=== PATIENT | female | born 2000 | race Caucasian/White ===

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

== ENCOUNTER 2025-01-25 12:39 | Emergency (ER) | payer BC, SELFPAY ==
[2025-01-25] VITALS (7 sets, daily range): BP systolic 104–137; BP diastolic 55–87; PULSE 68–89; RESP 13–20; TEMP 36.6–37.1; O2SAT 97–100; BMI 29.9
--- NOTE | 2025-01-25 12:47 | ECG_ITS ---
APPROVED REPORT Exam: Resting ECG HR:85 bpm ECG Measurements Heart Rate 85 AXES ND 145 P 28 QRSd 76 QRS 70 QT 340 T 2 QTc 383 Conclusion SINUS RHYTHM Normal intervals Normal [place] No STEMI Electronically signed by : Randy Rapp, 01/25/2025 16:45:32
--- OUTSIDE RECORDS SUMMARY | 2025-01-25 12:47 | XMS_ITS | Data Portability ---
Author Organization [facility] Address [address] [place] [address] Assessment No assessment recorded. Plan of Treatment Reminders Order Date Submit Date Provider Last Modified By Organization Details Last Modified Time Details Appointments None recorded. Lab cobalamin and folate panel, serum 2024 025 [facility], [address], [address], [place], [address], 5 08:11:15 iron + total iron-bindin g capacity (TIBC), serum 2024 025 [facility], [address], [place], [place], [address], 5 08:11:15 CBC w/ auto diff 2024 025 [facility], [address], [place] [address], [place], [address], 5 08:11:14 CMP, serum or plasma 2024 025 [facility], [address], [place] [address], [place], [address], 5 08:11:15 vitamin D, 25-hydroxy, total, serum 2024 025 [facility], [address], [place] [address], [place], [address], 5 08:11:16 TSH + free T4, serum 2024 025 [facility], [address], [address], [place], [address], 5 08:11:14 HbA1c (hemoglobin A1c), blood 2024 025 [facility], [address], [place] [address], [place], [address], 5 08:11:16 insulin, serum 2024 025 [facility], [address], [place] [address], [place], [address], 5 08:11:17 beta-HCG, qualitative , serum or plasma 2024 025 [facility], [address], [place] [address], [place], [address], 5 08:11:16 rapid strep group A, throat 2023 024 [facility], [address] [facility], [place], [address], 4 11:32:22 Referral None recorded. Procedures None recorded. Surgeries None recorded. Imaging None recorded. Medication Orders neomycin-po lymyxin-hyd rocort 3.5 mg-10,000 unit/mL-1 % ear drops,susp 2023 025 [facility], [address] [place], [place] [address], [id number], 5 08:48:06 Zithromax Z-Karthikeyan 250 mg tablet 2023 024 [facility], [address] [place], [place] [address], [id number], 4 15:39:56 neomycin-po lymyxin-hyd rocort 3.5 mg-10,000 unit/mL-1 % ear drops,susp [facility], [address] [place] [address] Isabelle [place], [id number], 17:39:28 amoxicillin 500 mg capsule 2021 [facility], [address] [place] [address] Isabelle Sun[place], [id number], 17:39:23 Patient TargetsNo targets recorded. Patient Instructions Encounter Date Encounter Id Patient Instructions Last Modified By Organization Details Last Modified Time 01/08/2024 [id number] sore throat in children: care instructions efryman Not available 01/08/2024 10:59:25 Reason for Referral None Reported. Results Created Date Observation Date Name Description Value Unit Range Abnormal Flag Note LastModifiedBy Organization Detail LastModifiedTime 01/08/2001/08/2024 rapid strep group A, throa t Strep negati ve Not Available [address], [address], 01/08/2024 10:41:03 01/08/20 24 01/08/2024 rapid strep group A, throa t Culture No Not Available [address], [address], 01/08/2024 10:41:03 01/22/20 25 01/22/2025 TSH+F REE T4 TSH 1.520 uIU/m L 0.450- 4.500 normal Not Available [facility] ([facility]) [address] [place], [address], 01/22/2025 08:11:14 01/22/2001/22/2025 TSH+F REE T4 T4,free(dire ct) 0.89 NG/dL 0.82-1 .77 normal Not Available [facility] ([facility]) [address] [place], [address], 01/22/2025 08:11:14 01/22/20 25 01/22/2025 CBC WITH DIFFE RENTI AL/PL ATELE T WBC 6.7 x10e3 /uL 3.4-10 .8 normal Not Available [facility] ([facility]) [address] [facility], [place], [address], 01/22/2025 08:11:14 01/22/2001/22/2025 CBC WITH DIFFE RENTI AL/PL ATELE T RBC 4.76 x10e6 /uL 3.77-5 .28 normal Not Available [facility] ([facility]) [address] [place], [address], 01/22/2025 08:11:14 01/22/2001/22/2025 CBC WITH DIFFE RENTI AL/PL ATELE T hemoglobin 12.8 g/dL 11.1-1 5.9 normal Not Available [facility] ([facility]) [address] [place], [address], 01/22/2025 08:11:14 01/22/2001/22/2025 CBC WITH DIFFE RENTI AL/PL ATELE T hematocrit 41.2 % 34.0-4 6.6 normal Not Available [facility] ([facility]) [address] [place], [address], 01/22/2025 08:11:14 01/22/2001/22/2025 CBC WITH DIFFE RENTI AL/PL ATELE T MCV 87 fL 79-97 normal Not Available [facility] ([facility]) [address] [place], [address], 01/22/2025 08:11:14 01/22/20 25 01/22/2025 CBC WITH DIFFE RENTI AL/PL ATELE T MCH 26.9 pg 26.6-3 3.0 normal Not Available [facility] ([facility]) [address] [facility], [place], [address], 01/22/2025 08:11:14 01/22/20 25 01/22/2025 CBC WITH DIFFE RENTI AL/PL ATELE T MCHC 31.1 g/dL 31.5-3 5.7 below low normal Not Available [facility] ([facility]) [address] [facility], [place], [address], 01/22/2025 08:11:14 01/22/20 25 01/22/2025 CBC WITH DIFFE RENTI AL/PL ATELE T RDW 15.2 % 11.7-1 5.4 Not Available [facility] ([facility]) [address] [facility], [place], [address], 01/22/2025 08:11:14 01/22/20 25 01/22/2025 CBC WITH DIFFE RENTI AL/PL ATELE T platelets 391 x10e3 /uL 150-45 0 normal Not Available [facility] ([facility]) [address] [facility], [place], [address], 01/22/2025 08:11:14 01/22/2001/22/2025 CBC WITH DIFFE RENTI AL/PL ATELE T neutrophils 56 % not estab. normal Not Available [facility] ([facility]) [address] [facility], [place], [address], 01/22/2025 08:11:14 01/22/2001/22/2025 CBC WITH DIFFE RENTI AL/PL ATELE T lymphs 34 % not estab. normal Not Available [facility] ([facility]) [address] [facility], [place], [address], 01/22/2025 08:11:14 01/22/20 25 01/22/2025 CBC WITH DIFFE RENTI AL/PL ATELE T monocytes 7 % not estab. normal Not Available [facility] ([facility]) [address] [place], [address], 01/22/2025 08:11:14 01/22/20 25 01/22/2025 CBC WITH DIFFE RENTI AL/PL ATELE T eos 2 % not estab. normal Not Available [facility] ([facility]) [address] [place], [address], 01/22/2025 08:11:14 01/22/20 25 01/22/2025 CBC WITH DIFFE RENTI AL/PL ATELE T basos 1 % not estab. normal Not Available [facility] ([facility]) [address] [place], [address], 01/22/2025 08:11:14 01/22/20 25 01/22/2025 CBC WITH DIFFE RENTI AL/PL ATELE T immature cells AEROSOL SUPERVISOR Not Available [facility] ([facility]) [address] [place], [address], 01/22/2025 08:11:14 01/22/20 25 01/22/2025 CBC WITH DIFFE RENTI AL/PL ATELE T neutrophils (absolute) 3.8 x10e3 /uL 1.4-7. 0 normal Not Available [facility] ([facility]) [address] [place], [address], 01/22/2025 08:11:14 01/22/2001/22/2025 CBC WITH DIFFE RENTI AL/PL ATELE T lymphs (absolute) 2.2 x10e3 /uL 0.7-3. 1 normal Not Available [facility] ([facility]) [address] [place], [address], 01/22/2025 08:11:14 01/22/20 25 01/22/2025 CBC WITH DIFFE RENTI AL/PL ATELE T monocytes(ab solute) 0.5 x10e3 /uL 0.1-0. 9 normal Not Available [facility] ([facility]) [address] [place], [address], 01/22/2025 08:11:14 01/22/20 25 01/22/2025 CBC WITH DIFFE RENTI AL/PL ATELE T eos (absolute) 0.2 x10e3 /uL 0.0-0. 4 normal Not Available [facility] ([facility]) [address] [facility], [place], [address], 01/22/2025 08:11:14 01/22/20 25 01/22/2025 CBC WITH DIFFE RENTI AL/PL ATELE T baso (absolute) 0.1 x10e3 /uL 0.0-0. 2 normal Not Available [facility] ([facility]) [address] [facility], [place], [address], 01/22/2025 08:11:14 01/22/20 25 01/22/2025 CBC WITH DIFFE RENTI AL/PL ATELE T immature granulocytes 0 % not estab. Not Available [facility] ([facility]) [address] [facility], [place], [address], 01/22/2025 08:11:14 01/22/2001/22/2025 CBC WITH DIFFE RENTI AL/PL ATELE T immature grans (abs) 0.0 x10e3 /uL 0.0-0. 1 Not Available [facility] ([facility]) [address] [facility], [place], [address], 01/22/2025 08:11:14 01/22/2001/22/2025 CBC WITH DIFFE RENTI AL/PL ATELE T NRBC AEROSOL SUPERVISOR Not Available [facility] ([facility]) [address] [facility], [place], [address], 01/22/2025 08:11:14 01/22/2001/22/2025 CBC WITH DIFFE RENTI AL/PL ATELE T hematology comments: AEROSOL SUPERVISOR Not Available [facility] ([facility]) [address] [facility], [place], [address], 01/22/2025 08:11:14 01/22/20 25 01/22/2025 COMP. METAB OLIC PANEL (14) glucose 86 mg/dL 70-99 normal Not Available [facility] ([facility]) [address] [facility] [place], [address], 01/22/2025 08:11:15 01/22/20 25 01/22/2025 COMP. METAB OLIC PANEL (14) BUN 9 mg/dL 6-20 normal Not Available [facility] ([facility]) [address] [facility] [place], [address], 01/22/2025 08:11:15 01/22/20 25 01/22/2025 COMP. METAB OLIC PANEL (14) creatinine 0.77 mg/dL 0.57-1 .00 normal Not Available [facility] ([facility]) [address] [facility] [place], [address], 01/22/2025 08:11:15 01/22/20 25 01/22/2025 COMP. METAB OLIC PANEL (14) eGFR 112 mL/mi n/1.7 3 >59 normal Not Available [facility] ([facility]) [address] [place], [address], 01/22/2025 08:11:15 01/22/20 25 01/22/2025 COMP. METAB OLIC PANEL (14) BUN/creatini ne ratio 12 9-23 normal Not Available [facility] ([facility]) [address] [place], [address], 01/22/2025 08:11:15 01/22/20 25 01/22/2025 COMP. METAB OLIC PANEL (14) sodium 139 mmol/ L 134-14 4 normal Not Available [facility] ([facility]) [address] [place], [address], 01/22/2025 08:11:15 01/22/20 25 01/22/2025 COMP. METAB OLIC PANEL (14) potassium 4.5 mmol/ L 3.5-5. 2 normal Not Available [facility] ([facility]) [address] [facility] [place], [address], 01/22/2025 08:11:15 01/22/20 25 01/22/2025 COMP. METAB OLIC PANEL (14) chloride 100 mmol/ L 96-106 normal Not Available [facility] ([facility]) [address] [facility] [place], [address], 01/22/2025 08:11:15 01/22/20 25 01/22/2025 COMP. METAB OLIC PANEL (14) carbon dioxide, total 17 mmol/ L 20-29 below low normal Not Available [facility] ([facility]) [address] [facility] [place], [address], 01/22/2025 08:11:15 01/22/20 25 01/22/2025 COMP. METAB OLIC PANEL (14) calcium 9.9 mg/dL 8.7-10 .2 normal Not Available [facility] ([facility]) [address] [place], [address], 01/22/2025 08:11:15 01/22/20 25 01/22/2025 COMP. METAB OLIC PANEL (14) protein, total 7.2 g/dL 6.0-8. 5 normal Not Available [facility] ([facility]) [address] [place], [address], 01/22/2025 08:11:15 01/22/20 25 01/22/2025 COMP. METAB OLIC PANEL (14) albumin 4.8 g/dL 4.0-5. 0 normal Not Available [facility] ([facility]) [address] [place], [address], 01/22/2025 08:11:15 01/22/20 25 01/22/2025 COMP. METAB OLIC PANEL (14) globulin, total 2.4 g/dL 1.5-4. 5 Not Available [facility] ([facility]) [address] [facility] [place], [address], 01/22/2025 08:11:15 01/22/20 25 01/22/2025 COMP. METAB OLIC PANEL (14) bilirubin, total <0.2 mg/dL 0.0-1. 2 Not Available [facility] ([facility]) [address] [facility] [place], [address], 01/22/2025 08:11:15 01/22/20 25 01/22/2025 COMP. METAB OLIC PANEL (14) alkaline phosphatase 71 IU/L 44-121 normal Not Available [facility] ([facility]) [address] [facility] [place], [address], 01/22/2025 08:11:15 01/22/20 25 01/22/2025 COMP. METAB OLIC PANEL (14) AST (SGOT) 27 IU/L 0-40 normal Not Available [facility] ([facility]) [address] [facility] [place], [address], 01/22/2025 08:11:15 01/22/20 25 01/22/2025 COMP. METAB OLIC PANEL (14) ALT (SGPT) 24 IU/L 0-32 normal Not Available [facility] ([facility]) [address] [place], [address], 01/22/2025 08:11:15 01/22/20 25 01/22/2025 IRON AND TIBC iron bind.cap.(TI BC) 503 ug/dL 250-45 0 above high normal Not Available [facility] ([facility]) [address] [facility] [place], [address], 01/22/2025 08:11:15 01/22/20 25 01/22/2025 IRON AND TIBC UIBC 461 ug/dL 131-42 5 above high normal Not Available [facility] ([facility]) [address] [facility], [place], [address], 01/22/2025 08:11:15 01/22/20 25 01/22/2025 IRON AND TIBC iron 42 ug/dL 27-159 normal Not Available [facility] ([facility]) [address] [facility], [place], [address], 01/22/2025 08:11:15 01/22/20 25 01/22/2025 IRON AND TIBC iron saturation 8 % 15-55 alert low Not Available [facility] ([facility]) [address] [facility], [place], [address], 01/22/2025 08:11:15 01/22/20 25 01/22/2025 VITAM IN B12 AND FOLAT E vitamin B12 466 pg/mL 232-12 45 normal Not Available [facility] ([facility]) [address] [facility], [place], [address], 01/22/2025 08:11:15 01/22/20 25 01/22/2025 VITAM IN B12 AND FOLAT E folate (folic acid), serum 14.1 NG/mL >3.0 normal A serum folat e leonila ntrat ion of less than 3.1 ng/mL is consi dered to repre sent clini susana defic iency . Not Available [facility] ([facility]) [address] [facility], [place], [address], 01/22/2025 08:11:15 01/22/2001/22/2025 HEMOG LOBIN A1C hemoglobin A1C 5.6 % 4.8-5. 6 normal Predi abete s: 5.7 - 6.4 Diabe fuentes: >6.4 Glyce noah contr ol for adult s with diabe fuentes: <7.0 Not Available [facility] ([facility]) [address] [place], [address], 01/22/2025 08:11:16 01/22/20 25 01/22/2025 VITAM IN D, 25-HY DROXY vitamin D, 25-hydroxy 25.7 NG/mL 30.0-1 00.0 below low normal Vitam in D defic iency has been defin ed by the Insti tute of Medic ine and an Endoc rine Socie ty pract ice guide line as a level of serum 25-OH vitam in D less than 20 ng/mL (1,2) . The Endoc rine Socie ty went on to furth er defin e vitam in D insuf ficie ncy as a level betwe en 21 and 29 ng/mL (2). 1. IOM (Inst itute of Medic ine). 2010. Radah ry refer georgettee arsen es for calci um and D. Janes tovar [place]: The [facility] Press . 2. Jairo rodrigues MF, Peggy arita [place], Smiley off-F errar i PATEL, et al. Evalu ation , treat ment, and preve ntion of vitam in D defic iency : an Endoc rine Socie ty clini susana pract ice guide line. JCEM. 2010; 96(7) :1911 -30. Not Available [facility] ([facility]) [address] [place], [address], 01/22/2025 08:11:16 01/22/20 25 01/22/2025 HCG QL W/REF PERI TO HCG QN HCG,beta subunit,qual Negati ve mIU/m L negati ve <6 Not Available [facility] ([facility]) [address] [place], [address], 01/22/2025 08:11:16 01/22/20 25 01/22/2025 INSUL IN insulin 17.2 uIU/m L 2.6-24 .9 normal Not Available [facility] ([facility]) [address] [place], [address], 01/22/2025 08:11:17 Result Notes None recorded. Problems No Known Problems Medical Equipment None Reported. Allergies No known drug allergies Medications Name Sig Start Date Stop Date Status Note LastModified by Organization Details LastModified Time amoxicillin 500 mg capsule Take 1 capsule twice a day by oral route as directed for 10 days. 01/21 completed Not Available Not Available Not Available neomycin-po lymyxin-hyd rocort 3.5 mg/mL-10,00 0 unit/mL-1 % ear solution 01/21 completed Not Available Not Available Not Available azithromyci n 250 mg tablet TAKE 2 TABLETS (500 MG) BY ORAL ROUTE ONCE DAILY FOR 1 DAY THEN 1 TABLET (250 MG) BY ORAL ROUTE ONCE DAILY FOR 4 DAYS 05/16 completed Not Available Not Available Not Available ofloxacin 0.3 % ear drops 06/30 completed Not Available Not Available Not Available amoxicillin 875 mg tablet 06/30 completed Not Available Not Available Not Available methylpredn isolone 4 mg tablets in a dose pack 06/30 completed Not Available Not Available Not Available neomycin-po lymyxin-hyd rocort 3.5 mg-10,000 unit/mL-1 % ear drops,susp INSTILL 4 DROPS INTO AFFECTED EAR(S) BY OTIC ROUTE 3 TIMES PER DAY 01/21 completed Not Available Not Available Not Available cholecalcif chiquita (vitamin D3) 1,250 mcg (50,000 unit) capsule Take 1 capsule every week by oral route. 2024 active Not Available Not Available Not Avai lable Vitals Date Recorded Body weight Body temperature Heart rate Oxygen saturation Oxygen saturation in Arterial blood by Pulse oximetry Respiratory rate Systolic And Diastolic Provider Name and Address Organization Details Last Updated DateTime 4 29217.0 3 g 97.6 [degF] 104 /min 98 % 98 % 18 /min 130/82 mm[Hg] Shelbi CASTILLO - [facility] 4 10:46:18 Date Recorded Body weight Body temperature Heart rate Oxygen saturation Oxygen saturation in Arterial blood by Pulse oximetry Respiratory rate Systolic And Diastolic Provider Name and Address Organization Details Last Updated DateTime 4 26308.4 g 98.1 [degF] 122 /min 99 % 99 % 18 /min 132/78 mm[Hg] Shelbi CASTILLO - [facility] 4 15:39:19 Date Recorded Body weight Body temperature Heart rate Oxygen saturation Oxygen saturation in Arterial blood by Pulse oximetry Respiratory rate Systolic And Diastolic Provider Name and Address Organization Details Last Updated DateTime 2 29367.4 2 g 97.6 [degF] 116 /min 98 % 98 % 18 /min 140/82 mm[Hg] Shelbi Borges [place] - [facility] 2 14:42:16 Social History Question Answer Notes LastModified by Organizat ion Details LastModified Time Tobacco Smoking Status Never Smoker Shelbi Borges null, [place] - [facility] 06/30/2022 14:43:59 Do You Have An Advance Directive? No Information n ot available 06/30/2022 Are You Blind Or Do You Have Difficulty Seeing? No Information n ot available 06/30/2022 What Is Your Level Of Caffeine Consumption? Occasional Information not available 06/30/2022 In The 14 Days Before Symptom Onset, Have You Had Close Contact With A Laboratory-confirm ed COVID-19 While That Case Was Ill? No Information n ot available 06/30/2022 In The 14 Days Before Symptom Onset, Have You Had Close Contact With A Person Who Is Under Investigation For COVID-19 While That Person Was Ill? No Information not available 06/30/2022 Have You Been To An Area Known To Be High Risk For COVID-19? No Information not available 06/30/2022 Are You Deaf Or Do You Have Serious Difficulty Hearing? No Information not available 06/30/2022 What Type Of Diet Are You Following? REGULAR Information n ot available 06/30/2022 Have You Processed Blood Or Body Fluids From An Ebola Virus Disease Patient Without Appropriate PPE? No Information not available 06/30/2022 Do You Reside In Or Have You Traveled To An Area Where Ebola Virus Transmission Is Active? No Information not available 06/30/2022 What Is The Highest Grade Or Level Of School You Have Completed Or The Highest Degree You Have Received? [id number] Information not available 06/30/2022 Have There Been Any Changes To Your Family Or Social Situation? No Information no t available 06/30/2022 What Is The Fluoride Status Of Your Home? Fluoridated Information not available 06/30/2022 Have You Recently Or Are You Planning To Travel To An Area With Zika Virus? No Information not available 06/30/2022 Do You Have A Medical Power Of Sustainable Systems Analyst? No Information not available 06/30/2022 What Was The Date Of Your Most Recent Tobacco Screening? 01/08/2024 Information not available 01/08/2024 What Is Your Relationship Status? Single Information not available 06/30/2022 Do You Have Smoke And Carbon Monoxide Detectors In Your Home? Yes Information not available 06/30/2022 Are You Passively Exposed To Smoke? No Information no t available 06/30/2022 Has Tobacco Cessation Counseling Been Provided? No Information not available 06/30/2022 Do You Have Difficulty Walking Or Climbing Stairs? No Information not available 06/30/2022 Sex: Female Functional Status Question Answer Note LastModified by Organizat ion Details LastModified Time Do you use any illicit or recreational drugs? No Information not available 06/30/2022 Do you or have you ever used any other forms of tobacco or nicotine? No Information not available 06/30/2022 What is your level of alcohol consumption? None Information not available 06/30/2022 Are you currently employed? No Information not available 06/30/2022 Do you have transportation difficulties? No Information not available 06/30/2022 Are you able to walk? YESWOREST Information not available 06/30/2022 Do you have difficulty doing errands alone? No Information not available 06/30/2022 Are you able to care for yourself? Yes Information not available 06/30/2022 Do you have difficulty dressing or bathing? No Information not available 06/30/2022 What is your exercise level? Moderate Information not available 06/30/2022 Mental Status Question Answer Note LastModified by Organizat ion Details LastModified Time Do you feel stressed (tense, restless, nervous, or anxious, or unable to sleep at night)? [id number] Information not available 06/30/2022 Do you have difficulty concentrating, remembering or making decisions? No Information no t available 06/30/2022 Family History Nothing Reported. Medical History Condition Response Pancreatitis N Coronary Artery Disease N Other N Gout N Atrial Fibrillation N congenital heart disease N Kidney Stones N Blood Diseases N Hyperthyroidism N Rheumatoid arthritis N Blood Transfusion N Erectile Dysfunction N amputation N Colonoscopy N Skin Lesions N Depression N COPD N Pneumonia N Incontinence N Murmur N Edema N Alzheimer's Disease N Migraine Headaches N Tobacco Abuse N Anxiety Disorder N Muscle, Joint, or Bone Problems N Hemorrhoids N Obesity N Vision or Eye Problems N Restless Leg Syndrome N Arthritis N Polyps N Infertility N Mental Disorder N Carpal Tunnel N Acid Reflux (GERD) N Cancer N Varicosities N Stroke N Tendonitis N Crohn's Disease N Hypercholesterolemia N Skin Cancer N Headaches N Fibromyalgia N Irritable Bowel Syndrome N Anal Fissure N Kidney Disease N Heart Problems N Ear or Hearing Problems N Hospitalizations N Gallstones N Kidney or Bladder Problems N Goiter N Acne N Skin Problems N Eating Disorder N Randolph's Esophagus N Hypertriglyceridemia N MRSA exposure N Constipation N Embolism N Vitamin B12 Deficiency N Deviated Septum N Tuberculosis N AIDS/HIV N Myocardial Infarction N Asthma N Mitral Valve Disorders N Vertigo N Hepatitis N Thyroid Cancer N Neuropathy N Pulmonary Embolism N History of DVT N Herniated Disc N Chronic Ear Infections N Chicken Pox N Autism Spectrum Disorder (ASD) N Von Willebrands Disease N Thrombophilias N Breast Cancer N Hernia N Plantar Fasciitis N Hospital Admission Other Than N Lung Disease N Hypothyroidism N Defects or Inherited Disease N Developmental or Behavioral Disorders N Breast Problem N Difficulty Swallowing N Ovarian Cyst N Anesthesia Complications N Testosterone Deficiency N Meniere's disease N Head Injury/Concussion N Interstitial Cystitis N Congenital Anomalies N Hypoglycemia N Blood clot N Vitamin D Deficiency N Cellulitis N Endometriosis N Bladder or Kidney Problems N Fracture N Colorectal Cancer N Liver Disease N Schizophrenia N Panic Disorder N Concussion N Spina Bifida N Allergies/Hayfever N Osteoarthritis N Parkinson's Disease N Disc Protrusion N STI N Esophagitis N Angina N Thyroid Problems N GI Problems N ADD/ADHD N Anemia N Multiple Sclerosis N Abnormal PAP N Lumbago N Mental Illness N Psychiatric Illness N Ovarian Cancer N Diabetes N Bedwetting N Degenerative Disc Disease N Seizures/Epilepsy N Congestive Heart Failure (CHF) N Syncope N Insomnia N Hyperlipidemia N Eczema N Abuse/Domestic Violence N Attention Deficient Disorder N Dementia N Diverticulitis N Ulcerative colitis N Cerebrovascular Disease N Depression N Guillain-[place] N Sleep Apnea N Aneurysm N Bronchitis N Heart Disease N Suicidal Ideation N Pre-Eclampsia N Hypertension N Osteoporosis N Gynecological History Statement/Question Response Menses Monthly Y LMP Approximate Date of LMP 01/19/2025 Obstetrics History GPAL:G 0 P 0 0 0 0 Immunizations Vaccine Type Date Status Note Provider Nam e and Address Organization Details Recorded Time DTaP, unspecified formulation 3 completed Shelbi Hamptonler null, [place] - [facility] 06/30/2022 14:42:34 meningococcal MCV4P 9 completed Shelbi Jony null, [place] - [facility] 06/30/2022 14:42:34 DTaP, unspecified formulation 6 completed Shel[place] [facility] 06/30/2022 14:42:34 [id number]-[id number] 3 completed Shelbi Hampton[place] [facility] 06/30/2022 14:42:34 meningococcal MCV4P 4 completed Shelbi [place] [facility] 06/30/2022 14:42:34 HPV, quadrivalent 5 completed Shel[place] [facility] 06/30/2022 14:42:34 [id number]-[id number]-FBE-HEP B, historical 2 completed Shelbi Hampton[place] [facility] 06/30/2022 14:42:34 PYuL-Gag-WOC 3 completed Shelbi Borges [place] [facility] 06/30/2022 14:42:34 varicella 3 completed Shelbi Borges [place] [facility] 06/30/2022 14:42:34 Hep A, ped/adol, 2 dose 8 completed Shelbi [place] [facility] 06/30/2022 14:42:34 varicella 6 completed Shel[place] [facility] 06/30/2022 14:42:34 Hep B, adolescent or pediatric 2 completed Shelbi Borges [place] [facility] 06/30/2022 14:42:34 Hep B, adolescent or pediatric 3 completed Shelbi [place] [facility] 06/30/2022 14:42:34 COVID-19, mRNA, LNP-S, PF, 30 mcg/0.3 mL dose 1 completed Shelbi [place] [facility] 06/30/2022 14:42:34 IPV 6 completed Shel[place] [facility] 06/30/2022 14:42:34 HPV, quadrivalent 4 completed Shelbi [place] [facility] 06/30/2022 14:42:34 COVID-19, mRNA, LNP-S, PF, 30 mcg/0.3 mL dose 1 completed Shelbi [place] [facility] 06/30/2022 14:42:34 Hep A, ped/adol, 2 dose 5 completed Shelbi [place] [facility] 06/30/2022 14:42:34 Hib, unspecified formulation 3 completed Shel[place] [facility] 06/30/2022 14:42:34 MMR 3 completed Shel[place] [facility] 06/30/2022 14:42:34 meningococcal B, OMV 9 completed Shelbi [place] [facility] 06/30/2022 14:42:34 Tdap 4 completed Shel[place] [facility] 06/30/2022 14:42:34 MMR 6 completed Shel[place] [facility] 06/30/2022 14:42:34 Past Encounters Encounter ID Performer Location Encounter Start Date Encounter Closed Date Diagnosis/Indication Diagnosis SNOMED-CT Code Diagnosis ICD10 Code Diagnosis Note [id number] Jennifer Dunlap APRN [address] [address] 06/30/2022 14:30:19 06/30/2022 14:57:10 Acute right otitis media 653345579 H66.91 Acute otit is externa of right ear [id number] 762261 H60.361 [id number] Jennifer Dunlap APRN [address] [place] [address] 01/08/2024 10:36:57 01/08/2024 11:00:53 Streptococcal sore throat 56187182 J02.0 contact precaution s discussed [id number] Jennifer LorenzonatalieLETICIA [address] [address] 05/16/2024 15:12:31 05/16/2024 15:49:52 Otitis externa of left ear [id number] 948029 H60.92 if symptoms do not improve return [id number] Toshiatiit Dunlap APRN [address] [address] 01/21/2025 17:30:21 01/21/2025 18:19:57 Malaise and fatigue 961031158 R53.81 R53.83 labs Health Concerns Section Related Observation LastModified by Organization Detai ls LastModified Time None Recorded Concern Status LastModified by Organization Details LastModified Time None Recorded Advance Directives Directive N: Payers Insurance Date Sequence Insurance Name Policy Number Policy Gee Covered Member ID Gee Member ID Guarantor Name 01/21/2025 1 [place] [id number] Gunner Borja [id number] Jayda Borja Notes Date Note Type Note Provider Name and Address Organization Details Recorded Time 06/30/2022 text/html 22 yr old female presents with right ear pain that started yesterday. It is intermittent and sometimes sharp and sometimes dull in nature. Jennifer Dunlap APRN [address], [place], [address], [place] - [facility] 06/30/2022 14:54:35 01/08/2024 text/html 23 yr old female presents with sore throat since last night. Her voice has been raspy for a few days. Jennifer Dunlap APRN [address], [place], [address], [facility] - [facility] 01/08/2024 11:00:25 05/16/2024 text/html 24 yr old female presents for left ear pain that started yesterday. She has some decreased hearing and states it feels like something is blocking her ear. She has tried ear drops from [facility] with no success. She states she has minor drainage. Jennifer LorenzoLETICIA estrada [address], [place], [address], [facility] - [facility] 05/16/2024 15:53:53 01/21/2025 text/html 24 yr old female presents for chronic fatigue. Requesting lab work. 2-3 months, tied to sleep more still tired. sleeps 7-8 hours sleep every night. no changes or interruptions to sleep, denies waking олег, does snore. no depression,anxiety Toshiaanthonyberny LETICIA Dunlap [address], [place], [address], [facility] - [facility] 01/21/2025 18:11:23 OBGyn Episode No OBEpisode recorded.
--- OUTSIDE RECORDS SUMMARY | 2025-01-25 12:47 | XMS_ITS | Continuity of Care Document ---
Author Organization [facility] Address [address] [place] [address] Assessment No assessment recorded. Plan of Treatment Reminders Order Date Submit Date Provider Last Modified By Organization Details Last Modified Time Details Appointments None recorded. Lab cobalamin and folate panel, serum 2024 025 [facility], [address], [address], [place], [address], 5 08:11:15 iron + total iron-ankush ng capacity (TIBC), serum 2024 025 [facility], [address], [address], [place], [address], 5 08:11:15 CBC w/ auto diff 2024 025 [facility], [address], [address], [place], [address], 5 08:11:14 CMP, serum or plasma 2024 025 [facility], [address], [address], [place], [address], 5 08:11:15 vitamin D, 25-hydroxy , total, serum 2024 025 [facility], [address], [address], [place], [address], 5 08:11:16 TSH + free T4, serum 2024 025 [facility], [address], [address], [place], [address], 5 08:11:14 HbA1c (hemoglobi n A1c), blood 2024 025 [facility], [address], [address], [place], [address], 5 08:11:16 insulin, serum 2024 025 [facility], [address], [address], [place], [address], 5 08:11:17 beta-HCG, qualitativ e, serum or plasma 2024 025 [facility], [address], [address], [place], [address], 5 08:11:16 Referral None recorded. Procedures None recorded. Surgeries None recorded. Imaging None recorded. Medication Orders None recorded. Patient TargetsNo targets recorded. Patient InstructionsNo instructions recorded. Reason for Referral None Reported. Problems No Known Problems Medical Equipment None [...] Available Not Available Not Avai lable Vitals None Recorded Social History Question Answer Notes LastModified by [...] Or The Highest Degree You Have Received? GL21087-8 Information not available 06/30/2022 Have There Been Any Changes To Your Family Or Social Situation? No Information no t available 06/30/2022 What Is The Fluoride Status Of Your Home? Fluoridated Information not available 06/30/2022 Have You Recently Or Are You Planning To Travel To An Area With Zika Virus? No Information not available 06/30/2022 Do You Have A Medical Power Of Private Eye? No Information not available 06/30/2022 What Was [...] Functional Status Question Answer Note LastModified by [employer] ion Details LastModified Time Do you use [...] anxious, or unable to sleep at night)? [id number] Information not available 06/30/2022 Do you have difficulty concentrating, remembering or making decisions? No Information no t available 06/30/2022 Family History Nothing Reported. Medical History Condition Response Pancreatitis N Coronary Artery Disease N Other N Gout N Atrial Fibrillation N congenital heart disease N Blood Diseases N Kidney Stones N Hyperthyroidism N Blood Transfusion N Rheumatoid arthritis N Erectile Dysfunction N amputation N Colonoscopy N Skin Lesions N COPD N Depression N Pneumonia N Incontinence N Murmur N Edema N Alzheimer's Disease N Migraine Headaches N Tobacco Abuse N Anxiety Disorder N Hemorrhoids N Muscle, Joint, or Bone Problems N Obesity N Vision or Eye Problems N Arthritis N Restless Leg Syndrome N Polyps N Infertility N Mental Disorder N Carpal Tunnel N Acid Reflux (GERD) N Cancer N Varicosities N Stroke N Tendonitis N Crohn's Disease N Hypercholesterolemia N Skin Cancer N Headaches N Fibromyalgia N Anal Fissure N Irritable Bowel Syndrome N Kidney Disease N Heart Problems N [...] D Deficiency N Cellulitis N Endometriosis N Fracture N Bladder or Kidney Problems N Colorectal Cancer N Liver Disease N Panic Disorder N Schizophrenia N Concussion N Spina Bifida N Allergies/Hayfever N Osteoarthritis N Parkinson's Disease N Disc Protrusion N STI N Esophagitis N Angina N Thyroid Problems N GI Problems N ADD/ADHD N Anemia N Multiple Sclerosis N Abnormal PAP N Lumbago N Mental Illness N Psychiatric Illness N Diabetes N Ovarian Cancer N Bedwetting N Degenerative Disc Disease N Seizures/Epilepsy N Congestive Heart Failure (CHF) N Hyperlipidemia N Syncope N Insomnia N Eczema N Abuse/Domestic Violence N Attention Deficient Disorder N Diverticulitis N Dementia N Ulcerative colitis N Cerebrovascular Disease N Depression N Guillain-[place] N Sleep Apnea N Aneurysm N Bronchitis [...] 14:42:34 DTaP, unspecified formulation 6 completed Shelbi Borges null, [place] - [facility] 06/30/2022 14:42:34 [id number]-Saa-JCX 3 completed Shelbi Borges [place] [facility] 06/30/2022 14:42:34 meningococcal MCV4P 4 completed Shelbi Borges [place] [facility] 06/30/2022 14:42:34 HPV, quadrivalent 5 completed Shelbi J[place] [facility] 06/30/2022 14:42:34 YSiB-TBL-QZF-HEP B, historical 2 completed Shelbi Borges [place] [facility] 06/30/2022 14:42:34 ZMcV-Oaw-ECT 3 completed Shelbi Hampton[place] [facility] 06/30/2022 14:42:34 varicella 3 completed Shelbi Borges [place] [facility] 06/30/2022 14:42:34 Hep A, ped/adol, 2 dose 8 completed Shelbialana Borges [place] [facility] 06/30/2022 14:42:34 varicella 6 completed Shelbi Borg[place] [facility] 06/30/2022 14:42:34 Hep B, adolescent or pediatric 2 completed Shelbi [place] [facility] 06/30/2022 14:42:34 Hep B, adolescent or pediatric 3 completed Shelbi [place] [facility] 06/30/2022 14:42:34 COVID-19, mRNA, LNP-S, PF, 30 mcg/0.3 mL dose 1 completed Shelbi J[place] [facility] 06/30/2022 14:42:34 IPV 6 completed Shel[place] [facility] 06/30/2022 14:42:34 HPV, quadrivalent 4 completed Shelbi [place] [facility] 06/30/2022 14:42:34 COVID-19, mRNA, LNP-S, PF, 30 mcg/0.3 mL dose 1 completed Shelbi [place] [facility] 06/30/2022 14:42:34 Hep A, ped/adol, 2 dose 5 completed Shelbi [place] [facility] 06/30/2022 14:42:34 Hib, unspecified formulation 3 completed Shelbi [place] [facility] 06/30/2022 14:42:34 MMR 3 completed Shel[place] [facility] 06/30/2022 14:42:34 meningococcal B, OMV 9 completed Shelbi [place] [facility] 06/30/2022 14:42:34 Tdap 4 completed Shel[place] [facility] 06/30/2022 14:42:34 MMR 6 completed Shelbi [place] [facility] 06/30/2022 14:42:34 Past Encounters Encounter ID Performer Location Encounter Start Date Encounter Closed Date Diagnosis/Indication Diagnosis SNOMED-CT Code Diagnosis ICD10 Code Diagnosis Note [id number] Jennifer Dunlap APRN [address] [address] 01/21/2025 17:30:21 01/21/2025 18:19:57 Malaise and fatigue [id number] R53.81 R53.83 labs Health Concerns Section Related Observation LastModified by Organization Detai ls LastModified Time None Recorded Concern Status LastModified by Organization Details LastModified Time None Recorded Payers Encounter Date Sequence Insurance Name Policy Number Policy Gee Covered Member ID Gee Member ID Guarantor Name 01/21/2025 1 [place] [id number] Gunner Borja [id number] Jayda Huong Notes Date Note Type Note Provider Name and Address Organization Details Recorded Time 01/21/2025 text/html 24 yr old female presents for chronic fatigue. Requesting lab work. 2-3 months, tied to sleep more still tired. sleeps 7-8 hours sleep every night. no changes or interruptions to sleep, denies waking олег, does snore. no depression,anxiety Jennifer Dunlap, [employer] [address], [place], [address], [place] [facility] 01/21/2025 18:11:23 OBGyn Episode No OBEpisode recorded.
--- NOTE | 2025-01-25 12:48 | CT_ITS ---
PROCEDURE INFORMATION: Exam: CT Head Without Contrast Exam date and time: 01/25/2025 1:10 PM Age: 24 years old Clinical indication: Pain; Headache; Additional info: Headache from hitting head on vehicle door, syncope TECHNIQUE: Imaging protocol: Computed tomography of the head without contrast. Radiation optimization: All CT scans at this facility use at least one of these dose optimization techniques: automated exposure control; mA and/or kV adjustment per patient size (includes targeted exams where dose is matched to clinical indication); or iterative reconstruction. COMPARISON: CT HEAD/BRAIN WO CON 01/25/2025 1:10 PM FINDINGS: Brain: The visualized basilar cisterns are patent. The cortical/white matter interfaces are preserved throughout the brain. There is no evidence of mass, mass effect or midline shift. There is no evidence of acute hemorrhage within the brain parenchyma or the subarachnoid space. The craniocervical junction is within range of normal. No significant white matter lucencies. Cerebral ventricles: The ventricular system is normal in size and distribution. Paranasal sinuses: There is minor mucoperiosteal thickening involving the anteromedial left sphenoid sinus. Mastoid air cells: The mastoid sinuses are normal. Orbital cavities: The orbits are normal. Teeth: Dental amalgam artifact limits evaluation of adjacent structures. Bones: There is no evidence of acute fracture. Soft tissues: No soft tissue swelling is identified. IMPRESSION: No acute intracranial abnormality.
--- NOTE | 2025-01-25 12:48 | CT_ITS ---
PROCEDURE INFORMATION: Exam: CT Cervical Spine Without Contrast Exam date and time: 01/25/2025 1:12 PM Age: 24 years old Clinical indication: Neck pain; Additional info: Neck pain from hitting head on vehicle door TECHNIQUE: Imaging protocol: Computed tomography of the cervical spine without contrast. Radiation optimization: All CT scans at this facility use at least one of these dose optimization techniques: automated exposure control; mA and/or kV adjustment per patient size (includes targeted exams where dose is matched to clinical indication); or iterative reconstruction. COMPARISON: CT HEAD/BRAIN WO CON 01/25/2025 1:10 PM FINDINGS: Bones: Alignment is intact from skull base to T1. The atlantooccipital articulations are preserved. The facet joints are appropriately aligned. The predental interval appears normal. Minor marginal osteophytes are present at the T1-2 level without significant neural foraminal narrowing. Vertebral body heights are preserved without compression fractures. There is no evidence of acute fracture. No focal disc protrusion. No significant central canal or neural foraminal narrowing. Paranasal sinuses: Minor mucoperiosteal thickening about the visualized left sphenoid sinus. Lungs: The visualized portions of the lung apices are normal. Thyroid: The visualized thyroid gland is normal. Lymph nodes: There is no evidence of pathologic adenopathy. Soft tissues: The prevertebral soft tissues are within range of normal. No focal hematomas. No significant soft tissue edema. IMPRESSION: No acute posttraumatic abnormality.
--- NOTE | 2025-01-25 12:54 | HMH.EDGENADL ---
Discharge Plan Disposition Patient Disposition: Home, Self-Care Prescriptions Prescriptions: No Action No Known Home Medications Referrals Follow up/Referrals: Jennifer Dunlap APRN [Primary Care Provider, Medical] - See instructions Clinical Impressions Clinical Impression: Syncope and collapse Instructions Patient Instructions: DI for Syncope in Adults (Fainting) Print Language Print Language: [place] Discharge ED Provider: Randy Rapp General Adult HPI <Angela Tariq (ED), RETAIL STORE CLERK - Last Filed: 01/25/25 14:57> General Chief complaint: Trauma Stated complaint: hit head on truck door, black out, turned purple, Time Seen by Provider: 01/25/25 12:59 History of Present Illness HPI narrative: 24-year-old female presents to the ED today after hitting her head on a truck door then blacking out and hitting the concrete. She is unsure on how long she was out. She does complain of neck pain and headache. Patient denies any chest or abdominal pain. No other pain. Mom states that she may have been drinking last night and this may have contributed to her episode. No nausea or vomiting. No other symptoms since she hit her head. Related Data Home Medications ?Medication ?Instructions ?Recorded ?Confirmed No Known Home Medications 06/26/19 08/28/20 Allergies Allergy/AdvReac Type Severity Reaction Status Date / Time No Known Allergies Allergy Verified 08/28/20 13:33 PFSH <Angela Tariq (ED), RETAIL STORE CLERK - Last Filed: 01/25/25 14:57> PFS Disclaimer: The information contained in this section may have been updated after the patient was seen, as this information can be updated by other users. Social History Smoking Status: Current every day smoker alcohol intake: never substance use type: denies use current occupational status: student Travel in the last 8 weeks?: None housing: house Have you lived/traveled outside [place] in past 30 days?: No Contact w/someone who lives/traveled outside US past 30 days?: No Exposure to someone with infectious disease in past 14 days?: No Do you have a fever (greater than 100.4 F or 38 C)?: No Have you tested positive for COVID-19?: No Exposed to someone with COVID-19 in past 14 days?: No Do you have a sore throat?: No Do you have a cough?: No Do you have any weakness?: No Do you have any diarrhea?: No Are you experiencing any unusual bleeding?: No Do you have any muscle aches/pain?: No Do you have any abdominal pain?: No Are you experiencing loss of taste or smell?: No Other Medical History Have you received the Pneumonia Vaccine: No <Angela Tariq (ED), RETAIL STORE CLERK - Last Filed: 01/25/25 14:57> ROS Obtained: Yes Systems reviewed as appropriate & no additional complaints except as documented Constitutional Constitutional: Reports as per HPI Physical Exam <Angela Tariq (ED), RETAIL STORE CLERK - Last Filed: 01/25/25 14:57> General General appearance: alert Head Head exam: atraumatic and normocephalic Eye Eye exam: Present PERRL and EOMI ENT ENT exam: Present normal oropharynx and mucous membranes moist Neck Neck exam: Present full ROM and trachea midline Chest Chest inspection: Present normal inspection Respiratory Respiratory exam: Present normal lung sounds bilaterally Cardiovascular Cardiovascular exam: Present regular rate, normal rhythm, normal heart sounds, +S1 and +S2 Abdominal Exam Abdominal exam: Present soft and normal bowel sounds Extremities Exam Extremities exam: Present normal inspection, full ROM and normal capillary refill Back Exam Back exam: Present normal inspection Neurological Exam Neurological exam: Present alert, oriented X3 and normal gait Skin Skin exam: Present warm, dry and intact Medical Decision Making <Angela Tariq (ED), RETAIL STORE CLERK - Last Filed: 01/25/25 14:57> Medical Records Screening: Per USPSTF and CDC recommendations, given the prevalence of disease in our region, it is our hospital?s policy to screen for HIV and viral Hepatitis for all patients aged 18 and over and those with ongoing risk factors. Law Inquiry Pt receiving controlled substance: No Law was queried for this patient: No Vital Signs: 01/25/25 12:59 01/25/25 13:00 01/25/25 13:11 Temperature 97.9 F 97.9 F Temperature Source Oral Oral Pulse Rate 89 88 Pulse Rate [Right] 88 Respiratory Rate 16 20 16 Blood Pressure 104/69 L 137/87 Blood Pressure [Right Arm] 137/87 Blood Pressure Mean Blood Pressure Mean [Right Arm] 103 Blood Pressure Source Automatic Cuff Blood Pressure Source [Right Arm] Automatic Cuff Blood Pressure Position Supine Blood Pressure Position [Right Arm] Supine 02 Sat by Pulse Oximetry 98 97 98 Oxygen Delivery Method Room Air Room Air Room Air 01/25/25 13:30 01/25/25 14:00 01/25/25 14:30 Temperature Temperature Source Pulse Rate 85 81 68 Pulse Rate [Right] Respiratory Rate 15 18 13 Blood Pressure 110/74 116/55 L 111/58 L Blood Pressure [Right Arm] Blood Pressure Mean 79 Blood Pressure Mean [Right Arm] Blood Pressure Source Blood Pressure Source [Right Arm] Blood Pressure Position Blood Pressure Position [Right Arm] 02 Sat by Pulse Oximetry 98 99 Oxygen Delivery Method Room Air Room Air 01/25/25 15:09 Temperature 98.7 F Temperature Source Oral Pulse Rate 68 Pulse Rate [Right] Respiratory Rate 15 Blood Pressure 121/75 Blood Pressure [Right Arm] Blood Pressure Mean Blood Pressure Mean [Right Arm] Blood Pressure Source Automatic Cuff Blood Pressure Source [Right Arm] Blood Pressure Position Supine Blood Pressure Position [Right Arm] 02 Sat by Pulse Oximetry Oxygen Delivery Method Room Air Lab Data Lab Results 01/25/25 12:47: WBC 4.5 L, RBC 5.01, Hgb 13.1, Hct 41.4, MCV 82.6, MCH 26.1 L, MCHC 31.6 L, RDW 14.4, Plt Count 378, MPV 9.5, Neut % (Auto) 34.6 L, Lymph % (Auto) 50.1 H, [place] % (Auto) 10.6 H, Eos % (Auto) 3.8, Baso % (Auto) 0.7, Neut # (Auto) 1.6 L, Lymph # (Auto) 2.3, [place] # (Auto) 0.5, Eos # (Auto) 0.2, Baso # (Auto) 0.0, Sodium 138, Potassium 4.6, Chloride 102, Carbon Dioxide 20 L, Anion Gap 20.6 H, BUN 9, Creatinine 0.80, Estimated Creat Clear 142, Estimated GFR 90, Est GFR ( Amer) 109, Glucose 85, Calcium 9.2, Magnesium 2.1, Total Bilirubin 0.6, AST 49 H, ALT 34, Alkaline Phosphatase 56, Troponin I < 0.01, Total Protein 8.2, Albumin 5.0, Globulin 3.2, Albumin/Globulin Ratio 1.6, Serum HCG, Qual Negative, Plasma/Serum Alcohol 81 H, HCV Ab CINDY w/Rflx PCR Qn Negative, HIV Ag/Ab Combo Qual Negative 01/25/25 12:47 01/25/25 12:47 Orders (Tests/Meds): ED MEDICATIONS Discontinued Medications Generic Name Dose Route Start Last Admin Trade Name Freq PRN Reason Stop Dose Admin Sodium Chloride 1,000 mls @ 999 mls/hr 01/25/25 12:51 01/25/25 13:24 Sod Chlor 0.9% 1000ml Bag IV 01/25/25 13:51 999 mls/hr .Q1H1M ONE Administration Sodium Chloride 10 ml 01/25/25 12:48 Sodium Chloride 0.9% 10ml Flush Syringe IV 02/24/25 12:47 NEEDED PRN Maintain IV Site ORDERS Category Date Time Status CT cervical spine wo con Stat Cat Scan 01/25/25 12:[address] head/brain wo con Stat Cat Scan 01/25/25 12:48 Completed Blood alcohol [Ethyl Alcohol] Stat Lab 01/25/25 12:47 Completed CBC w/Auto Diff [Complete Blood Count Auto Diff] Stat Lab 01/25/25 12:47 Completed Comprehensive Metabolic Panel Stat Lab 01/25/25 12:47 Completed HCG Qualitative, Serum Stat Lab 01/25/25 12:47 Completed HIV Combo Stat Lab 01/25/25 12:47 Completed Hepatitis C Ab Qual. W/ RFX Stat Lab 01/25/25 12:47 Completed Magnesium Stat Lab 01/25/25 12:47 Completed Trop I [Troponin I] Stat Lab 01/25/25 12:47 Completed Medical Decision Narrative: patient is a 24-year-old female presenting to the emergency department for evaluation of head injury and syncopal episode. Patient is hemodynamically stable and nontoxic-appearing upon arrival, afebrile. Differential diagnosis includes head injury, syncope, dehydration, alcohol intoxication, among others. Workup will be conducted with hematologic labs, specific imaging. Initial inventions include crystalloid bolus, analgesic. Initial workup reviewed by de hematologic labs are remarkable for elevated alcohol level at 81, otherwise labs were unremarkable. CT scans were negative for anything acute read by radiology. Dr. Rapp discussed with patient and her mother. Patient is safe for discharge home. Patient will follow-up with her primary care provider. <Randy Rapp, DO - Last Filed: 01/25/25 16:35> Vital Signs: 01/25/25 12:59 01/25/25 13:00 01/25/25 13:11 Temperature 97.9 F 97.9 F Temperature Source Oral Oral Pulse Rate 89 88 Pulse Rate [Right] 88 Respiratory Rate 16 20 16 Blood Pressure 104/69 L 137/87 Blood Pressure [Right Arm] 137/87 Blood Pressure Mean Blood Pressure Mean [Right Arm] 103 Blood Pressure Source Automatic Cuff Blood Pressure Source [Right Arm] Automatic Cuff Blood Pressure Position Supine Blood Pressure Position [Right Arm] Supine 02 Sat by Pulse Oximetry 98 97 98 Oxygen Delivery Method Room Air Room Air Room Air 01/25/25 13:30 01/25/25 14:00 01/25/25 14:30 Temperature Temperature Source Pulse Rate 85 81 68 Pulse Rate [Right] Respiratory Rate 15 18 13 Blood Pressure 110/74 116/55 L 111/58 L Blood Pressure [Right Arm] Blood Pressure Mean 79 Blood Pressure Mean [Right Arm] Blood Pressure Source Blood Pressure Source [Right Arm] Blood Pressure Position Blood Pressure Position [Right Arm] 02 Sat by Pulse Oximetry 98 99 Oxygen Delivery Method Room Air Room Air 01/25/25 15:09 Temperature 98.7 F Temperature Source Oral Pulse Rate 68 Pulse Rate [Right] Respiratory Rate 15 Blood Pressure 121/75 Blood Pressure [Right Arm] Blood Pressure Mean Blood Pressure Mean [Right Arm] Blood Pressure Source Automatic Cuff Blood Pressure Source [Right Arm] Blood Pressure Position Supine Blood Pressure Position [Right Arm] 02 Sat by Pulse Oximetry Oxygen Delivery Method Room Air Lab Data Lab Results 01/25/25 12:47: WBC 4.5 L, RBC 5.01, Hgb 13.1, Hct 41.4, MCV 82.6, MCH 26.1 L, MCHC 31.6 L, RDW 14.4, Plt Count 378, MPV 9.5, Neut % (Auto) 34.6 L, Lymph % (Auto) 50.1 H, [place] % (Auto) 10.6 H, Eos % (Auto) 3.8, Baso % (Auto) 0.7, Neut # (Auto) 1.6 L, Lymph # (Auto) 2.3, [place] # (Auto) 0.5, Eos # (Auto) 0.2, Baso # (Auto) 0.0, Sodium 138, Potassium 4.6, Chloride 102, Carbon Dioxide 20 L, Anion Gap 20.6 H, BUN 9, Creatinine 0.80, Estimated Creat Clear 142, Estimated GFR 90, Est GFR ( Amer) 109, Glucose 85, Calcium 9.2, Magnesium 2.1, Total Bilirubin 0.6, AST 49 H, ALT 34, Alkaline Phosphatase 56, Troponin I < 0.01, Total Protein 8.2, Albumin 5.0, Globulin 3.2, Albumin/Globulin Ratio 1.6, Serum HCG, Qual Negative, Plasma/Serum Alcohol 81 H, HCV Ab CINDY w/Rflx PCR Qn Negative, HIV Ag/Ab Combo Qual Negative Orders (Tests/Meds): ED MEDICATIONS Discontinued Medications Generic Name Dose Route Start Last Admin Trade Name Freq PRN Reason Stop Dose Admin Sodium Chloride 1,000 mls @ 999 mls/hr 01/25/25 12:51 01/25/25 13:24 Sod Chlor 0.9% 1000ml Bag IV 01/25/25 13:51 999 mls/hr .Q1H1M ONE Administration Sodium Chloride 10 ml 01/25/25 12:48 Sodium Chloride 0.9% 10ml Flush Syringe IV 02/24/25 12:47 NEEDED PRN Maintain IV Site ORDERS Category Date Time Status CT cervical spine wo con Stat Cat Scan 01/25/25 12:[address] head/brain wo con Stat Cat Scan 01/25/25 12:48 Completed Blood alcohol [Ethyl Alcohol] Stat Lab 01/25/25 12:47 Completed CBC w/Auto Diff [Complete Blood Count Auto Diff] Stat Lab 01/25/25 12:47 Completed Comprehensive Metabolic Panel Stat Lab 01/25/25 12:47 Completed HCG Qualitative, Serum Stat Lab 01/25/25 12:47 Completed HIV Combo Stat Lab 01/25/25 12:47 Completed Hepatitis C Ab Qual. W/ RFX Stat Lab 01/25/25 12:47 Completed Magnesium Stat Lab 01/25/25 12:47 Completed Trop I [Troponin I] Stat Lab 01/25/25 12:47 Completed ECG Data Tracing #1: I reviewed this ECG and interpreted as documented below: EKG personally interpreted by me demonstrates normal sinus rhythm with a rate of 85 bpm, normal axis, no OR prolongation, narrow QRS, no QTc prolongation. No ST elevation or depression. No overt signs of ischemia or arrhythmia Medical Decision Narrative: patient is a 24-year-old female presenting to the emergency department for evaluation of head injury and syncopal episode. This patient has no comorbidities that would complicate their medical management or care. Patient is hemodynamically stable and nontoxic-appearing upon arrival, afebrile. On secondary survey the patient has no scalp lacerations, hematomas, or abrasions. No midface instability or jaw malocclusion. No tenderness of the mastoids. No nasal septal hematoma. She does have mild cervical spine tenderness. No thoracic or lumbar spine tenderness. No tenderness of the anterior chest wall or anterior abdominal wall. No deformities of the extremities. Differential diagnosis includes intracranial hemorrhage, calvarial Fracture,, syncope, dehydration, alcohol intoxication, , among others. Workup will be conducted with hematologic labs, specific imaging. Initial inventions include crystalloid bolus, analgesic. Initial workup reviewed by me hematologic labs are remarkable for elevated alcohol level at 81, otherwise labs were unremarkable. I personally interpreted patient's CT scan which demonstrates no large intracranial hemorrhage or skull fractures. Official radiology read is in agreement states that there is no acute abnormality. The patient did not necessitate any emergent medications or interventions while the emergency department. On repeat reassessment she is resting comfortably and is in no acute distress. I have successfully cleared her c-collar and she does not have any midline tenderness of her C-spine. Dr. Rapp discussed with patient and her mother. Patient is safe for discharge home. Patient will follow-up with her primary care provider. Attestation: I was consulted by the JOSE, and we discussed the complexity of problems being addressed. I approved the treatment and management plan for this patient's care in the emergency department, thus performing a substantive portion of the medical decision making. Randy Rapp, DO Critical Care <Angela Tariq (ED), RETAIL STORE CLERK - Last Filed: 01/25/25 14:57> Critical Care Time Critical Care Time: No
--- NOTE | 2025-01-25 13:01 | HMH.ITSTN ---
Per Haroldo RN no preg test needed for CT scan
[2025-01-25] MEDS: 0.9 % SODIUM CHLORIDE 1000ML 1,000 ML 999 ML IV (13:24)
--- NOTE | 2025-01-25 13:27 | PC.NURSE ---
fsbs 79 AT THIS TIME.
[2025-01-25 13:36] LABS: Alanine Aminotransferase 34 U/L (12-78); Albumin Level 5.0 g/dl (3.5-5.0); Albumin/Globulin Ratio 1.6 (1.1-1.8); Alkaline Phosphatase 56 U/L (38-126); Anion Gap 20.6 mEq/L (5-15); Aspartate Amino Transferase 49 U/L (14-36); Bilirubin,Total 0.6 mg/dl (0.2-1.3); Blood Urea Nitrogen 9 mg/dl (7-17); Calcium 9.2 mg/dl (8.4-10.2); Carbon Dioxide 20 mmol/L (22.0-30.0); Chloride 102 mmol/L (98-107); Creatinine Clearance Estimated 142 mL/min (50-200); Creatinine,Serum 0.80 mg/dl (0.52-1.04); Estimated Glomerular Filt Rate 90 ml/min (>60); GFR (African American) 109 ML/MIN (>60); Globulin 3.2 g/dL (1.3-3.2); Glucose 85 mg/dl (74-100); Potassium 4.6 mmoL/L (3.5-5.1); Sodium 138 mmol/L (136-145); Total Protein,Serum 8.2 g/dl (6.3-8.2)
--- NOTE | 2025-01-25 14:03 | PC.NURSE ---
I rounded on the pt. no new complaints at this time. no needs voiced. call gonzales in reach.
[2025-01-25 14:08] LABS: Hematocrit 41.4 % (37.0-47.0); Hemoglobin 13.1 g/dL (12.2-16.2); Immature Granulocytes % 0.2 %; Mean Corpuscular HGB Conc 31.6 g/dL (31.8-35.4); Mean Corpuscular Hemoglobin 26.1 pg (27.0-31.2); Mean Corpuscular Volume 82.6 fl (81-99); Nucleated Red Blood Cells % 0 %; Platelet Count 378 K/mm3 (142-424); Red Blood Count 5.01 M/mm3 (4.20-5.40); Red Cell Distribution Width-SD 42.7 fL; White Blood Count 4.5 K/mm3 (4.8-10.8)
[2025-01-25 14:17] LABS: Troponin I < 0.01 ng/ml (0.00-0.034)
[2025-01-25 14:18] LABS: HCG Qualitative, Serum Negative (Negative)
[2025-01-25 14:47] LABS: Magnesium 2.1 mg/dl (1.6-2.3)
[2025-01-25 15:22] LABS: Hepatitis C Ab Qual. W/ RFX NEGATIVE (Negative)
== END 2025-01-25 15:11 | disposition home or self-care (01) ==
PROVIDERS: Nurse Practitioner; Emergency Provider Student in an Organized Health Care Education/Training Program; PCP Nurse Practitioner Family
DX: R55 Syncope and collapse (principal); M54.2 Cervicalgia; R51.9 Headache, unspecified; F17.210 Nicotine dependence, cigarettes, uncomplicated; W22.8XXA Striking against or struck by other objects, initial encounter; Z11.59 Encounter for screening for other viral diseases; Z11.4 Encounter for screening for human immunodeficiency virus [HIV]
CPT/HCPCS: 70450; 72125; 80053; 80320; 83735; 84484; 84703; 85025; 86803; 87389; 93005; 96360; 99285; J7030